=== PATIENT | male | born 1990 | race Hispanic/Latino ===

== ENCOUNTER 2018-04-05 13:54 | Emergency (ER) | payer SELFPAY ==
[2018-04-05] MEDS ORDERED: METOCLOPRAMIDE 10 MG/2mL INJ ONE (14:41)
[2018-04-05] MEDS ORDERED: KETOROLAC 30 MG/ML INJ ONE (14:42)
[2018-04-05] MEDS ORDERED: NA CHLORIDE 0.9% 1,000 ML ONE (14:42)
[2018-04-05] MEDS ORDERED: DIPHENHYDRAMINE 50 MG/ML VIAL ONE (14:42)
--- NOTE | 2018-04-05 14:52 | RAD REPORT ---
EXAM DESCRIPTION: CT - Head Brain Wo Cont - 04/05/2018 2:40 pm CLINICAL HISTORY: Headache COMPARISON: None. TECHNIQUE: Computed axial tomography of the head was obtained. IV contrast was not requested. All CT scans are performed using dose optimization technique as appropriate and may include automated exposure control or mA/KV adjustment according to patient size. FINDINGS: An intracranial bleed is not seen . The ventricles are normal in caliber. No extra-axial fluid collection is noted. Fluid within the sinuses/ mastoids is not seen. IMPRESSION: No acute intracranial abnormality is seen. If patient's symptoms persist MRI of the bra in would be recommended.
[2018-04-05 15:02] LABS: Absolute Lymphocytes (CBC) 4.4 K/uL (0.7-4.9); Absolute Monocytes 0.6 K/uL (0.1-1.3); Absolute Neutrophil 3.5 K/uL (1.8-8.0); Basophils % 0.9 % (0-1.3); Eosinophils % 2.6 % (0-4.4); Hematocrit 43.5 % (39.6-49.0); Lymphocytes % 49.7 % (15.3-44.8); MCH 27.4 pg (27.0-35.0); MCV 81.5 fL (80-100); MPV 7.7 fL (7.6-11.3); Monocytes % 6.9 % (3.3-12.3); RBC Red Blood Cell Count 5.33 M/uL (4.33-5.43)
[2018-04-05 15:07] LABS: BUN Blood Urea Nitrogen 15 mg/dL (7-18); Bicarbonate 28 mmol/L (21-32); Glucose Level 100 mg/dL (74-106); Potassium 3.9 mmol/L (3.5-5.1); Sodium Level 140 mmol/L (136-145)
--- NOTE | 2018-04-05 16:19 | EDPHYS ---
Physician Documentation [facility] Name: Harry Marie Age: 27 yrs Sex: Male : 1990 Arrival Date: 04/05/2018 Time: 13:58 Bed 17 Private MD: ED Physician Duke Simons HPI: 04/05 16:14 This 27 yrs old Male presents to ER via Ambulatory with complaints of Headache.gs 16:14 The patient complains of pain to the left side of the back of head. The patient gs describes the headache as throbbing. Onset: The symptoms/episode began/occurred gradually, yesterday, and became worse and became persistent today. Associated signs and symptoms: Pertinent negatives: altered mental status, vision loss, vomiting, weakness. Severity of symptoms: At its worst the pain was severe, in the emergency department the pain is unchanged. Headache History: Denies prior headaches. The symptoms are alleviated by nothing. the symptoms are aggravated by nothing. The patient has not experienced similar symptoms in the past. Historical: - Allergies: 14:00 No Known Allergies; aj - Home Meds: 14:00 None [Active]; aj - PMHx: 14:00 None; aj - PSHx: 14:00 Appendectomy; aj - Immunization history:: Adult Immunizations up to date. - Social history:: Smoking status: Patient/guardian denies using tobacco. - Ebola Screening: : Patient negative for fever greater than or equal to 101.5 degrees Fahrenheit, and additional compatible Ebola Virus Disease symptoms Patient denies exposure to infectious person Patient denies travel to an Ebola-affected area in the 21 days before illness onset No symptoms or risks identified at this time. ROS: 16:14 All other systems are negative. gs Exam: 16:14 Head/Face: Normocephalic, atraumatic. Eyes: Pupils equal round and reactive to light, gs extra-ocular motions intact. Lids and lashes normal. Conjunctiva and sclera are non-icteric and not injected. Cornea within normal limits. Periorbital areas with no swelling, redness, or edema. ENT: Nares patent. No nasal discharge, no septal abnormalities noted. Tympanic membranes are normal and external auditory canals are clear. Oropharynx with no redness, swelling, or masses, exudates, or evidence of obstruction, uvula midline. Mucous membranes moist. Neck: Trachea midline, no thyromegaly or masses palpated, and no cervical lymphadenopathy. Supple, full range of motion without nuchal rigidity, or vertebral point tenderness. No Meningismus. Chest/axilla: Normal chest wall appearance and motion. Nontender with no deformity. No lesions are appreciated. Cardiovascular: Regular rate and rhythm with a normal S1 and S2. No gallops, murmurs, or rubs. Normal PMI, no JVD. No pulse deficits. Respiratory: Lungs have equal breath sounds bilaterally, clear to auscultation and percussion. No rales, rhonchi or wheezes noted. No increased work of breathing, no retractions or nasal flaring. Abdomen/GI: Soft, non-tender, with normal bowel sounds. No distension or tympany. No guarding or rebound. No evidence of tenderness throughout. Back: No spinal tenderness. No costovertebral tenderness. Full range of motion. Skin: Warm, dry with normal turgor. Normal color with no rashes, no lesions, and no evidence of cellulitis. MS/ Extremity: Pulses equal, no cyanosis. Neurovascular intact. Full, normal range of motion. 16:14 Constitutional: The patient appears alert, awake. 16:14 Neuro: Orientation: is normal, Mentation: is normal, Memory: is normal, Cranial nerves: CN II- XII are normal as tested, Cerebellar function: is grossly normal, Motor: moves all fours, strength is normal, Sensation: no obvious gross deficits, Gait: is steady. Vital Signs: 14:00 BP 168 / 108; Pulse 60; Resp 19; Temp 98.6; Pulse Ox 100% on R/A; Weight 81.65 kg; aj Height 5 ft. 4 in. (162.56 cm); 15:09 BP 149 / 96; Pulse 55; Resp 15; Pulse Ox 100% on R/A; Pain 8/10; em 15:56 BP 136 / 93; Pulse 71; Resp 16; Pulse Ox 100% on R/A; Pain 4/10; em 16:50 BP 129 / 90; Pulse 58; Resp 18; Pulse Ox 99% on R/A; Pain 1/10; em 14:00 Body Mass Index 30.90 (81.65 kg, 162.56 cm) aj MDM: 14:24 Patient medically screened. 16:14 Differential diagnosis: hypertensive headache, migraine, neoplasm. Data reviewed: vital gs signs, nurses notes. Response to treatment: the patient's symptoms have markedly improved after treatment, and as a result, I will discharge patient. 16:19 Counseling: I had a detailed discussion with the patient and/or guardian regarding: the gs presence of at least one elevated blood pressure reading (>120/80) during this emergency department visit. Special discussion: I have referred the patient to see his PCP for further evaluation of high blood pressure. 04/05 14:26 Order name: CBC with Diff; Complete Time: 15:11 04/05 14:26 Order name: Basic Metabolic Panel; Complete Time: 15:11 04/05 14:26 Order name: CT Head Brain wo Cont; Complete Time: 15:02 Administered Medications: 14:54 Drug: NS 0.9% 1000 ml Route: IV; Rate: 1 bolus; Site: right antecubital; aa5 16:50 Follow up: IV Status: Completed infusion; IV Intake: 1000ml em 14:54 Drug: Reglan 10 mg Route: IVP; Site: right antecubital; aa5 15:56 Follow up: Response: No adverse reaction em 14:56 Drug: Benadryl 25 mg Route: IVP; Site: right antecubital; aa5 15:56 Follow up: Response: No adverse reaction em 14:58 Drug: TORadol 30 mg Route: IVP; Site: right antecubital; aa5 15:56 Follow up: Response: No adverse reaction; Pain is decreased em Disposition: 04/05/18 16:18 Discharged to Home. Impression: Headache, Essential (primary) hypertension. - Condition is Stable. - Discharge Instructions: General Headache Without Cause, Hypertension, Managing Your Hypertension. - Medication Reconciliation Form, Thank You Letter, Antibiotic Education, Prescription Opioid Use form. - Follow up: Josseline Callaway DO; When: 2 - 3 days; Reason: Re-evaluation by your physician. Signatures: Dispatcher [employer] Angelika Rosales RN Chico Schultz, OIL RIGGER OIL RIGGER Lesley Watson RN RN aa5 Duke Simons MD MD Corrections: (The following items were deleted from the chart) 16:51 16:18 04/05/2018 16:18 Discharged to Home. Impression: Headache; Essential (primary) em hypertension. Condition is Stable. Forms are Medication Reconciliation Form, Thank You Letter, Antibiotic Education, Prescription Opioid Use. Follow up: Josseline Callaway; When: 2 - 3 days; Reason: Re-evaluation by your physician. gs
--- NOTE | 2018-04-05 16:19 | ER ---
Nurse's Notes [facility] Name: Harry Marie Age: 27 yrs Sex: Male : 1990 Arrival Date: 04/05/2018 Time: 13:58 Bed 17 Private MD: Diagnosis: Headache;Essential (primary) hypertension Presentation: 04/05 13:59 Presenting complaint: Patient states: Headache to back of head since yesterday after aj work. Patient denies photosensitivity or vomiting. Denies neck pain or fever. Transition of care: patient was not received from another setting of care. Onset of symptoms was April 04, 2018. Risk Assessment: Do you want to hurt yourself or someone else? Patient reports no desire to harm self or others. Initial Sepsis Screen: Does the patient meet any 2 criteria? No. Patient's initial sepsis screen is negative. Does the patient have a suspected source of infection? No. Patient's initial sepsis screen is negative. Care prior to arrival: None. 13:59 Method Of Arrival: Ambulatory 13:59 Acuity: ROMAN 3 aj Triage Assessment: 14:00 Headache History: Denies prior headaches. General: Appears in no apparent distress. aj uncomfortable, Behavior is calm, cooperative, appropriate for age. Pain: Complains of pain in scalp Pain currently is 10 out of 10 on a pain scale. Pain began 1 day ago. Also complains of nausea. Neuro: Level of Consciousness is awake, alert, obeys commands, Oriented to person, place, time, situation, Appropriate for age Reports headache that is the "worst ever". Respiratory: Airway is patent Respiratory effort is even, unlabored, Respiratory pattern is regular, symmetrical. GI: Reports nausea. Derm: Skin is intact, is healthy with good turgor, Skin is pink, warm \\T\\ dry. normal. Historical: - Allergies: 14:00 No Known Allergies; aj - Home Meds: 14:00 None [Active]; aj - PMHx: 14:00 None; aj - PSHx: 14:00 Appendectomy; aj - Immunization history:: Adult Immunizations up to date. - Social history:: Smoking status: Patient/guardian denies using tobacco. - Ebola Screening: : Patient negative for fever greater than or equal to 101.5 degrees Fahrenheit, and additional compatible Ebola Virus Disease symptoms Patient denies exposure to infectious person Patient denies travel to an Ebola-affected area in the 21 days before illness onset No symptoms or risks identified at this time. Screenin:57 Abuse screen: Denies threats or abuse. Nutritional screening: No deficits noted. em Tuberculosis screening: No symptoms or risk factors identified. Fall Risk None identified. Assessment: 14:25 General: Appears in no apparent distress. uncomfortable, Behavior is cooperative. Pain: em Complains of pain in occipital area Pain currently is 10 out of 10 on a pain scale. Neuro: Level of Consciousness is awake, alert, obeys commands, Oriented to person, place, time, situation. Neuro: Reports headache Denies dizziness, numbness. Cardiovascular: Capillary refill < 3 seconds Patient's skin is warm and dry. Respiratory: Airway is patent Respiratory effort is even, unlabored, Respiratory pattern is regular, symmetrical. GI: Abdomen is flat. : No signs and/or symptoms were reported regarding the genitourinary system. EENT: No signs and/or symptoms were reported regarding the EENT system. Derm: Skin is intact, Skin is pink, warm \\T\\ dry. Musculoskeletal: Range of motion: intact in all extremities. 14:25 Reassessment: I agree with assessment completed by Chico Pabon LVN . aa5 15:00 Reassessment: Patient appears in no apparent distress at this time. Patient and/or em family updated on plan of care and expected duration. Pain level reassessed. Patient is alert, oriented x 3, equal unlabored respirations, skin warm/dry/pink. rates pain 8/10 Patient states feeling better. 16:00 Reassessment: Patient appears in no apparent distress at this time. Patient and/or em family updated on plan of care and expected duration. Pain level reassessed. Patient is alert, oriented x 3, equal unlabored respirations, skin warm/dry/pink. rates pain 4/10. 16:49 Reassessment: Patient appears in no apparent distress at this time. Patient and/or em family updated on plan of care and expected duration. Pain level reassessed. Patient is alert, oriented x 3, equal unlabored respirations, skin warm/dry/pink. rates 1/10. Vital Signs: 14:00 BP 168 / 108; Pulse 60; Resp 19; Temp 98.6; Pulse Ox 100% on R/A; Weight 81.65 kg; aj Height 5 ft. 4 in. (162.56 cm); 15:09 BP 149 / 96; Pulse 55; Resp 15; Pulse Ox 100% on R/A; Pain 8/10; em 15:56 BP 136 / 93; Pulse 71; Resp 16; Pulse Ox 100% on R/A; Pain 4/10; em 16:50 BP 129 / 90; Pulse 58; Resp 18; Pulse Ox 99% on R/A; Pain 1/10; em 14:00 Body Mass Index 30.90 (81.65 kg, 162.56 cm) ED Course: 13:58 Patient arrived in ED. aj 14:00 Triage completed. aj 14:00 Arm band placed on right wrist. Patient placed in an exam room. aj 14:11 Duke Simons MD is Attending Physician. gs 14:34 Chico Pabon LVN is Primary Nurse. em 14:39 CT completed. Patient moved to CT via wheelchair. Patient moved back from CT. cw1 14:40 CT Head Brain wo Cont In Process Unspecified. EDMS 14:44 Patient has correct armband on for positive identification. Placed in gown. Bed in low mh5 position. Call light in reach. Side rails up X 1. Adult w/ patient. Pillow given. Pulse ox on. NIBP on. 14:44 Basic Metabolic Panel Sent. 5 14:44 CBC with Diff Sent. 5 14:44 Initial lab(s) drawn, by wa, sent to lab. Inserted saline lock: 20 gauge in right mh5 antecubital area, using aseptic technique. Blood collected. 16:16 Josseline Callaway DO is Referral Physician. gs 16:48 No provider procedures requiring assistance completed. IV discontinued, intact, em bleeding controlled, No redness/swelling at site. Pressure dressing applied. Administered Medications: 14:54 Drug: NS 0.9% 1000 ml Route: IV; Rate: 1 bolus; Site: right antecubital; aa5 16:50 Follow up: IV Status: Completed infusion; IV Intake: 1000ml em 14:54 Drug: Reglan 10 mg Route: IVP; Site: right antecubital; aa5 15:56 Follow up: Response: No adverse reaction em 14:56 Drug: Benadryl 25 mg Route: IVP; Site: right antecubital; aa5 15:56 Follow up: Response: No adverse reaction em 14:58 Drug: TORadol 30 mg Route: IVP; Site: right antecubital; aa5 15:56 Follow up: Response: No adverse reaction; Pain is decreased em Intake: 16:50 IV: 1000ml; Total: 1000ml. em Outcome: 16:18 Discharge ordered by . gs 16:48 Discharged to home ambulatory, with family. em 16:48 Condition: good 16:48 Discharge instructions given to patient, family, Instructed on discharge instructions, follow up and referral plans. Demonstrated understanding of instructions, follow-up care. 16:51 Patient left the ED. em Signatures: Dispatcher [employer] Angelika Rosales RN RN aj Munoz, Edgar, RAILROAD CROSSING PROTECTION MAINTAINER RAILROAD CROSSING PROTECTION MAINTAINER Lesley Watson RN RN aaTaylor Poe cw1 Christine Davidson Duke Rodriguez MD MD
== END 2018-04-05 16:51 | disposition home or self-care (01) ==
LOC: ER 13:54
DX: R51 Headache (principal); I10 Essential (primary) hypertension
CPT/HCPCS: 36415; 70450; 80048; 85025; 96361; 96374; 96375; 99284; J2765; J7030